=== PATIENT | female | born 1955 | race Caucasian/White ===

== ENCOUNTER 2016-11-16 02:07 | Emergency (ER) | payer OTHER ==
[~2016-11-16] VITALS: Ht 170.2 cm; Wt 77.0 kg
[2016-11-16 02:20] VITALS: BP 138/81; PULSE 81; RESP 18; TEMP 98.3; O2SAT 95
== END 2016-11-16 02:51 | disposition left against medical advice (07) ==
LOC: PHED 02:07
DX: J02.9 Acute pharyngitis, unspecified (principal)
CPT/HCPCS: 99281